=== PATIENT | female | born 1955 | race Caucasian/White ===

== ENCOUNTER 2019-10-24 13:28 | Inpatient (IN) | payer MEDICARE, MEDICAID ==
[2019-10-25] MEDS ORDERED: Magnesium Hydroxide (MOM) 30 mL UDC PO PRN (03:01)
[2019-10-25] MEDS ORDERED: Maalox 30 mL Cup PO PRN (03:01)
[2019-10-25] MEDS: Multivitamin Tab PO SCH ×2 (09:27→09:28)
--- NOTE | 2019-10-25 14:50 | History and Physical ---
History of Present Illness - HPI Chief Complaint: 64 y/o female patient was brought into ER for evaluation due to Increased confusion, Hallucinations, Aggressive behavior and Acting out. HPI: 64 y/o female patient was admitted to [facility] for evaluation due to Increased confusion, Hallucinations, Aggressive behavior and Acting out. Patient has history of . Patient had an ER assessment and a complete workup was done. Patient will have a Psych evaluation. Patient was diagnosed with Acute Psychosis. I will follow, treat and monitor patient. Patient will continue current treatment plan as ordered. Vital Signs: Last Vital Signs Temp 98.2 F 10/25/19 06:58 Pulse 74 10/25/19 06:58 Resp 20 10/25/19 06:58 BP 140/82 10/25/19 06:58 Pulse Ox 98 10/25/19 06:58 Past Medical History Cardiovascular: Report: No Pertinent Hx Pulmonary: Report: No Pertinent Hx ELECTRICAL MACHINIST: Report: No Pertinent Hx GI: Report: No Pertinent Hx Psych: Report: Psychosis Musculoskeletal: Report: No Pertinent Hx Rheumatologic: Report: No pertinent Hx Infectious Disease: Report: No Pertinent Hx Renal/: Report: No Pertinent Hx Endocrine: Report: No Pertinent Hx Dermatology: Report: No Pertinent Hx - Past Surgical History Past Surgical History: No pertinent Hx Family Medical History - Family Member Mother History Unknown: Yes Social History Smoke: No Alcohol: None Drugs: None Lives: With Family Domestic Violence: Negative Health Maintenance Health Maintenance: Other (Please see chart.) - Medications Home Medications: Home Medication Medication Instructions Recorded Type Atenolol 50 mg PO DAILY 10/25/19 History Divalproex ER [Depakote ER] 500 mg PO DAILY 10/25/19 History Quetiapine Fumarate [Seroquel] 200 mg PO HS 10/25/19 History Simvastatin [Zocor] 40 mg PO HS 10/25/19 History metFORMIN [Glucophage] 1,000 mg PO BID 10/25/19 History Other Medications: Please see medication reconciliation sheet. - Allergies Allergies/Adverse Reactions: Allergies Allergy/AdvReac Type Severity Reaction Status Date / Time Penicillins Allergy Verified 10/25/19 02:49 Review of Systems - Review of Systems Review of Systems: 64 y/o female patient was seen and examined, needs close monitoring due to Aggressive behavior, Increased confusion, Hallucinations and Striking out. Constitutional: Report: No Significant Eyes: Report: No Significant ENT: Report: No Significant Respiratory: Report: No Significant Cardiovascular: Report: No Significant Gastrointestinal: Report: No Significant Genitourinary: Report: No Significant Musculoskeletal: Report: No Significant Skin: Report: No Significant Neurological: Report: Confusion Physical Exam - Physical Exam HEENT: Report: Ears Nose Throat within normal limits Neck: Report: Within normal limits Cardiovascular Systems: Report: +s1/s2 noted Respiratory: Report: Breath Sounds are within normal limits Abdomen: Report: Non-tender to palpation Back: Report: Inspection of back is within normal limits. Extremities: Report: Non-tender to palpation. Skin: Report: Color of skin is within normal limits Neuro/Psych: Report: Disoriented to name time or place, Other (Increased Confusion and Aggression.) - Lab Results All Lab Results last 24 hours: Please see labs. - Assessment Assessment: Acute Psychosis. History of . - Plan Plan: Psych management as per Psych. Continue present meds as directed. Monitor vitals and labs. Supportive care. Monitor diet and nutritional support. Continue current treatment plan as ordered.
--- NOTE | 2019-10-25 20:40 | Psychiatric Evaluation ---
DATE OF SERVICE: 10/25/2019 HISTORY OF PRESENT ILLNESS: A 64-year-old female coming from [facility] due to increasing confusion, aggressive behaviors, hallucinations, coming from home under the service of Dr. Holcomb and Dr. Whitfield. History of hypertension, diabetes, arthritis, dementia, apparent bipolar. Noted to be confused, forgetful. The patient noting this is her first time in the psychiatric hospital going to other patients' rooms, using other patient's bathroom, trying to escape out of the unit. Staff monitoring her for AWOL risk. PAST PSYCHIATRIC HISTORY: As noted, noted dementia, possible bipolar. FAMILY HISTORY: Noncontributory. SOCIAL HISTORY: The patient coming from home. It is unclear what her level of family support is. MEDICATIONS: Noted. MENTAL STATUS EXAMINATION: Stated age. Fair eye contact, some confusion noted. No overt SI or HI. No overt psychotic symptoms, but disoriented, poor impulse control. PROVISIONAL DIAGNOSES: Dementia per history, bipolar per history. MEDICAL: Please see full H and P. ESTIMATED LENGTH OF STAY: 7-10 days. ASSESSMENT: The patient requiring hospitalization, agitated, more confused, could not be cared for at a lower level. TREATMENT PLAN: Includes group as well as milieu therapy, adjustment of medications. CONDITIONS FOR DISCHARGE: Improved mood, improved affect, better control of any agitation. JOB# [id number]
[2019-10-26] MEDS: Multivitamin Tab PO SCH (08:46)
[2019-10-26 17:03] VITALS: BP 98/41
--- NOTE | 2019-10-27 00:05 | Progress Notes ---
DATE: 10/26/2019 SUBJECTIVE: The patient is currently in the hospital, slept about 7 hours, confused, disoriented, wandering in the unit, really has no idea where she is or why she is here, states she is here "because of the program", needing a lot of redirection, sometimes trying to get out of the unit, restless, attempting to AWOL, disorganized. The patient needs to go. ASSESSMENT: The patient is very confused on exam, poor historian. The patient's son is involved. PLAN: We will continue to monitor concerns about poor impulse control. Medications were noted. Consider dosing of Aricept and Namenda. JOB# [id number]
[2019-10-27] MEDS: Multivitamin Tab PO SCH (09:30)
--- NOTE | 2019-10-27 14:38 | Internal Medicine Prog Note ---
Internal Medicine Subjective - Subjective Service Date: 10/27/19 Patient seen and examined:: with staff Patient is:: awake Per staff patient has:: tolerating meds Internal Medicine Objective - Physical Exam Vitals and I&O: Vital Signs Temp 97.8 F 10/27/19 06:39 Pulse 87 10/27/19 06:39 Resp 20 10/27/19 06:39 BP 147/76 10/27/19 06:39 Pulse Ox 95 10/27/19 06:39 Intake & Output 10/26/19 10/27/19 10/27/19 18:59 06:59 18:59 Intake Total 1200 240 Balance 1200 240 Intake: Oral 1200 240 Other: # Voids 3 2 # Bowel Movements 0 0 Active Medications: Current Medications Acetaminophen (Tylenol) 650 mg PO Q4HR PRN PRN Reason: Mild Pain (Scale 1-3) Stop: 12/24/19 03:00 Acetaminophen (Tylenol) 650 mg PO Q4H PRN PRN Reason: TEMP ABOVE 100 Stop: 12/24/19 10:19 Al Hydrox/Mg Hydrox/Simethicone (Maalox) 30 ml PO Q4HR PRN PRN Reason: GI DISTRESS Stop: 12/24/19 03:00 Atenolol (Tenormin) 25 mg PO DAILY [facility] Stop: 12/27/19 08:59 Lorazepam (Ativan) 0.5 mg PO Q4HR PRN; Protocol PRN Reason: Anxiety Stop: 11/24/19 03:00 Last Admin: 10/27/19 00:20 Dose: 0.5 mg Magnesium Hydroxide (Milk Of Magnesia) 30 ml PO HS PRN PRN Reason: Constipation Memantine (Namenda) 5 mg PO DAILY [facility] Stop: 12/26/19 08:59 Last Admin: 10/27/19 09:29 Dose: 5 mg Metformin HCl (Glucophage) 1,000 mg PO DAILY [facility] Stop: 12/27/19 08:59 Multivitamins/Vitamin C (Theragran) 1 tab PO DAILY [facility] Stop: 12/24/19 08:59 Last Admin: 10/27/19 09:30 Dose: 1 tab Nitrofurantoin Macrocrystals (Macrobid) 100 mg PO BIDWM [facility]; Protocol Stop: 12/26/19 17:59 Zolpidem Tartrate (Ambien) 5 mg PO HS PRN PRN Reason: Insomnia Stop: 12/24/19 03:00 Last Admin: 10/26/19 20:26 Dose: 5 mg General: alert HEENT: NC/AT, PERRLA Neck: Supple Cardiovascular: RRR Abdomen: soft, non-tender, non-distended Neurological: alert Internal Medicine Assmt/Plan - Assessment Assessment: Acute Psychosis. - Plan Plan: Psych management as per Psych. Continue present meds as directed. Monitor vitals and labs. Supportive care. Monitor diet and nutritional support. Continue current treatment plan as ordered.
--- NOTE | 2019-10-27 21:03 | Progress Notes ---
DATE: 10/27/2019 SUBJECTIVE: The patient in the hospital, trying to leave the unit, knocking on the doors, pushing the doors open, believing that she is going home, "I need to leave now" needing a lot of redirection, prompting, very disorganized, very confused, impulsive, unpredictable, sometimes getting upset and agitated with staff. We will continue to monitor. The patient is going to the bathroom, spending long periods of time in the bathroom. She is playing with toilet paper. MEDICATIONS: Reviewed. PLAN: We will continue to monitor. Continue Namenda. JOB# [id number]
[2019-10-28] MEDS: Multivitamin Tab PO SCH (08:38)
--- NOTE | 2019-10-28 10:49 | Progress Notes ---
DATE: 10/28/2019 SUBJECTIVE: The patient was seen in the dining area. The patient appears to be guarded, easily gets frustrated, very disorganized, episodes of behavioral outbursts. Otherwise, the patient appears to be in no acute distress. OBJECTIVE: VITAL SIGNS: Temperature 96.8, heart rate 98, blood pressure 158/97, respirations 20, 97% on room air. HEENT: Atraumatic and normocephalic. Eyes: Bilateral conjunctivae are clear. Bilateral pupils are equally round and reactive. NECK: Supple. No JVD. CARDIOVASCULAR: S1 and S2, without murmur. PULMONARY: Clear to auscultation. GASTROINTESTINAL: Soft and nontender without guarding. Positive bowel sounds. MUSCULOSKELETAL: No clubbing. No cyanosis noted. ASSESSMENT: 1. Dementia. 2. Agitation. 3. Hypertension. 4. Diabetes. PLAN: We will continue to keep the patient to inpatient Psychiatric Unit. We will follow up with a psychiatrist to monitor the patient's condition and behavior. Treatment plans were discussed with the patient's nurse. Treatment plans were discussed with Dr. Whitfield. JOB# [id number]
--- NOTE | 2019-10-29 00:18 | Progress Notes ---
DATE: 10/28/[address] Velasco. SUBJECTIVE: The patient was seen and evaluated. IDENTIFYING DATA: This is a 64-year-old female, brought in here from [facility] due to increased confusion and aggressive behavior, hallucinations, coming from home. Medication reconciliation reviewed, which includes Tylenol as needed, Namenda, metformin. Today on [id number] evaluation, the patient observed to have mild latency, delayed response and at times selectively mute, disengaged in the interview and not participating at times. Therefore, extremely poor historian. EXAMINATION: Poor historian, disengaged, distraught. ASSESSMENT AND PLAN: History of dementia. We will continue with the recent additional medication by the primary doctor, which includes Namenda. Obtain more collateral baseline information, especially with her history of bipolar . JOB# [id number]
[2019-10-29] MEDS: Multivitamin Tab PO SCH (09:05)
--- NOTE | 2019-10-29 15:02 | Internal Medicine Prog Note ---
Internal Medicine Subjective - Subjective Service Date: 10/29/19 Patient seen and examined:: with staff Patient is:: awake, agitated, confused Patient Complaints of:: other (delusional) Per staff patient has:: tolerating meds Internal Medicine Objective - Physical Exam Vitals and I&O: Vital Signs Temp 98.3 F 10/29/19 06:26 Pulse 88 10/29/19 09:06 Resp 20 10/29/19 06:26 BP 138/83 10/29/19 09:06 Pulse Ox 100 10/29/19 06:26 Intake & Output 10/28/19 10/29/19 10/29/19 18:59 06:59 18:59 Intake Total 850 240 Balance 850 240 Intake: Oral 850 240 Other: # Voids 2 # Bowel Movements 1 Active Medications: Current Medications Acetaminophen (Tylenol) 650 mg PO Q4HR PRN PRN Reason: Mild Pain (Scale 1-3) Stop: 12/24/19 03:00 Acetaminophen (Tylenol) 650 mg PO Q4H PRN PRN Reason: TEMP ABOVE 100 Stop: 12/24/19 10:19 Al Hydrox/Mg Hydrox/Simethicone (Maalox) 30 ml PO Q4HR PRN PRN Reason: GI DISTRESS Stop: 12/24/19 03:00 Atenolol (Tenormin) 25 mg PO BID [facility] Stop: 12/26/19 16:59 Last Admin: 10/29/19 09:06 Dose: 25 mg Lorazepam (Ativan) 0.5 mg PO Q4HR PRN; Protocol PRN Reason: Anxiety Stop: 11/24/19 03:00 Last Admin: 10/29/19 13:10 Dose: 0.5 mg Magnesium Hydroxide (Milk Of Magnesia) 30 ml PO HS PRN PRN Reason: Constipation Memantine (Namenda) 5 mg PO DAILY [facility] Stop: 12/26/19 08:59 Last Admin: 10/29/19 09:05 Dose: 5 mg Metformin HCl (Glucophage) 1,000 mg PO DAILY [facility] Stop: 12/27/19 08:59 Last Admin: 10/29/19 08:04 Dose: 1,000 mg Multivitamins/Vitamin C (Theragran) 1 tab PO DAILY [facility] Stop: 12/24/19 08:59 Last Admin: 10/29/19 09:05 Dose: 1 tab Nitrofurantoin Macrocrystals (Macrobid) 100 mg PO BIDWM [facility]; Protocol Stop: 12/26/19 17:59 Last Admin: 10/29/19 08:00 Dose: 100 mg Zolpidem Tartrate (Ambien) 5 mg PO HS PRN PRN Reason: Insomnia Stop: 12/24/19 03:00 Last Admin: 10/28/19 20:42 Dose: 5 mg Physical Exam: Needs close monitoring, continue to be delusional, hallucinating, has aggressive behavior. General: alert HEENT: NC/AT, PERRLA Neck: Supple Cardiovascular: RRR Abdomen: soft, non-tender, non-distended Neurological: alert Internal Medicine Assmt/Plan - Assessment Assessment: Acute Psychosis. - Plan Plan: Psych management as per Psych. Continue present meds as directed. Monitor vitals and labs. Supportive care. Monitor diet and nutritional support. Continue current treatment plan as ordered. Nutritional Asmnt/Malnutr-PDOC - Dietary Evaluation Malnutrition Findings (Please click <Entered> for more info): See orders.
--- NOTE | 2019-10-29 16:40 | Progress Notes ---
DATE: 10/29/2019 Today on [id number] evaluation, the patient is observed to be pacing throughout the hallway. She is confused. She does not know where her room is. She is guided back to her room and she starts being tearful. Reports that she does not know where she is, angry. MENTAL STATUS EXAMINATION: Poor historian and poor memory, disengaged. ASSESSMENT PLAN: Dementia with behavior disturbances. We will continue with the recent increase of the Namenda. We will obtain more collateral baseline information as she finds herself disorganized, but also distraught by the severe memory impairment. JOB# [id number]
[2019-10-30] MEDS: Multivitamin Tab PO SCH (09:12)
--- NOTE | 2019-10-30 18:57 | Internal Medicine Prog Note ---
Internal Medicine Subjective - Subjective Service Date: 10/30/19 Patient seen and examined:: with staff Patient is:: awake, agitated, confused Patient Complaints of:: other (delusional) Per staff patient has:: tolerating meds Internal Medicine Objective - Physical Exam Vitals and I&O: Vital Signs Temp 98.2 F 10/30/19 15:27 Pulse 97 10/30/19 16:45 Resp 18 10/30/19 15:27 BP 157/80 10/30/19 16:45 Pulse Ox 96 10/30/19 15:27 Intake & Output 10/29/19 10/30/19 10/30/19 18:59 06:59 18:59 Intake Total 5732 961 2771 Output Total 3 Balance 9288 340 1107 Intake: Oral 280 522 4781 Other 240 Output: Stool 3 Other: # Voids 4 4 4 # Bowel Movements 3 0 1 Active Medications: Current Medications Acetaminophen (Tylenol) 650 mg PO Q4HR PRN PRN Reason: Mild Pain (Scale 1-3) Stop: 12/24/19 03:00 Acetaminophen (Tylenol) 650 mg PO Q4H PRN PRN Reason: TEMP ABOVE 100 Stop: 12/24/19 10:19 Al Hydrox/Mg Hydrox/Simethicone (Maalox) 30 ml PO Q4HR PRN PRN Reason: GI DISTRESS Stop: 12/24/19 03:00 Atenolol (Tenormin) 25 mg PO BID [facility] Stop: 12/26/19 16:59 Last Admin: 10/30/19 16:45 Dose: 25 mg Lorazepam (Ativan) 0.5 mg PO Q4HR PRN; Protocol PRN Reason: Anxiety Stop: 11/24/19 03:00 Last Admin: 10/30/19 16:45 Dose: 0.5 mg Magnesium Hydroxide (Milk Of Magnesia) 30 ml PO HS PRN PRN Reason: Constipation Memantine (Namenda) 5 mg PO DAILY [facility] Stop: 12/26/19 08:59 Last Admin: 10/30/19 09:12 Dose: 5 mg Metformin HCl (Glucophage) 1,000 mg PO DAILY [facility] Stop: 12/27/19 08:59 Last Admin: 10/30/19 09:11 Dose: 1,000 mg Multivitamins/Vitamin C (Theragran) 1 tab PO DAILY [facility] Stop: 12/24/19 08:59 Last Admin: 10/30/19 09:12 Dose: 1 tab Nitrofurantoin Macrocrystals (Macrobid) 100 mg PO BIDWM [facility]; Protocol Stop: 12/26/19 17:59 Last Admin: 10/30/19 17:15 Dose: 100 mg Zolpidem Tartrate (Ambien) 5 mg PO HS PRN PRN Reason: Insomnia Stop: 12/24/19 03:00 Last Admin: 10/28/19 20:42 Dose: 5 mg Physical Exam: Continues to need close monitoring, continue to hallucinate and have agitated and hostile behavior. General: alert HEENT: NC/AT, PERRLA Neck: Supple Cardiovascular: RRR Abdomen: soft, non-tender, non-distended Extremities: clear Neurological: alert Internal Medicine Assmt/Plan - Assessment Assessment: Acute Psychosis. - Plan Plan: Psych management as per Psych. Continue present meds as directed. Monitor vitals and labs. Supportive care. Monitor diet and nutritional support. Continue current treatment plan as ordered. Nutritional Asmnt/Malnutr-PDOC - Dietary Evaluation Malnutrition Findings (Please click <Entered> for more info): Nutritional Asmnt/Malnutrition Start: 10/30/19 12: 12 Text: Status: Complete Freq: Protocol: Document 10/30/19 12:18 SHAD (Rec: 10/30/19 12:20 SHAD [id number]) Nutritional Asmnt/Malnutrition Patient General Information Nutritional Screening Moderate Risk Diagnosis Psychosis Pertinent Medical Hx/Surgical Hx No pertinent Hx per H & P report. Subjective Information Pt is a 64-year-old female admitted on 10/25 d/t increased confusion, hallucinations, and aggressive behavior. Pt is eating an estimated 75% of meals x 3 days Per Meal/ Nutrition Activity Record. Dietary is currently providing an estimated 1800 kcals and 70 gm Pro, per Pt PO intake this is providing an estimated 1350 kcals and 53 gm Pro to meet 80% kcal and 80% Pro needs- adequate. Anthropometrics HT: 54 WT: 147 LB (66.82 kg) BMI: 25.23 (Normal) GI/ Skin Integrity GI: Soft, Non-tender BM: 10/29 x1 I/O: 1480/3 (+1477) Skin: WNL, Intact Ravi: 21 Diet Order: CCHO 45gm, YEYO Estimated Energy Needs: ( Geriatric, CBW) 8510-0649 kcals (25-30 kcals/ kg) 66-80g Pro (1.0-1.2 g/kg) 3399-7135 ml (25-30 ml/kg) Current Diet Order/ Nutrition Support [facility] 45gm, YEYO Pertinent Medications Maalox (PRN), MOM (PRN), Glucophage, Theragran Pertinent Labs 10/24: Glucose 108, Ca 8.0, Alk Phos 39, Alb 3.1, Hgb/Hct 10. 8/32.9, GFR 98 Nutritional Hx/Data Height 1.63 m Height (Calculated Centimeters) 162.6 Current Weight (lbs) 66.678 kg Weight (Calculated Kilograms) 66.7 Weight (Calculated Grams) 34738.1 [place] Body Weight 120 LB (54.55 kg) % [place] Body Weight 82 Body Mass Index (BMI) 25.2 Weight Status Approriate GI Symptoms Last BM 10/29 x1 Skin Integrity/Comment: Skin: WNL, Intact Ravi: 21 Estimated Nutritional Goals BEE in Kcals: Using Current wt Calories/Kcals/Kg 25-30 Kcals Calculated 7063-2830 Protein: Using Current wt Protein g/k.0-1.2 Protein Calculated 66-80 Fluid: ml 1128-4758 ml (25-30 ml/kg) Nutritional Problem No current Nutrition Prob Problem No nutrition diagnosis at this time. Etiology N/A Signs/Symptoms: N/A Malnutrition Related to Morbid Obesity Malnutrition related to morbid obesity No Intervention/Recommendation Comments 1. Continue [facility] 45gm, YEYO diet as tolerated. 2. Continue antihyperglycemic medications for glucose control per MD order. Expected Outcomes/Goals Expected Outcomes/Goals 1. PO intake to continue to meet> 75% of estimated nutritional needs. 2. Monitor PO intake, wt, nutrition related labs, and skin integrity. 3. F/U as low risk in 7-10 days, 11/06-11/09
--- NOTE | 2019-10-31 00:31 | Progress Notes ---
DATE: 10/30/2019 SUBJECTIVE: The patient is very confused, disoriented, still trying to escape the unit stating that she is going to go home, "I'm gonna go home." Concerns for her ability to function at a lower level given how confused she is, disoriented she is, especially for appetite, somewhat calmer versus last week taking her medications. MEDICATIONS: Reviewed. PLAN: We will continue to monitor, coordinate care with social group worker regarding safe discharge plan. JOB# [id number]
[2019-10-31] MEDS: Multivitamin Tab PO SCH (09:18)
--- NOTE | 2019-10-31 17:28 | Internal Medicine Prog Note ---
Internal Medicine Subjective - Subjective Service Date: 10/31/19 Patient is:: awake, agitated, confused Patient Complaints of:: other (delusional) Per staff patient has:: tolerating meds Internal Medicine Objective - Physical Exam Vitals and I&O: Vital Signs Temp 99.4 F 10/31/19 14:00 Pulse 85 10/31/19 17:16 Resp 20 10/31/19 14:00 BP 157/86 10/31/19 17:16 Pulse Ox 97 10/31/19 14:00 Intake & Output 10/30/19 10/31/19 10/31/19 18:59 06:59 18:59 Intake Total 1000 240 Balance 1000 240 Intake: Oral 1000 240 Other: # Voids 4 2 # Bowel Movements 1 Active Medications: Current Medications Acetaminophen (Tylenol) 650 mg PO Q4HR PRN PRN Reason: Mild Pain (Scale 1-3) Stop: 12/24/19 03:00 Acetaminophen (Tylenol) 650 mg PO Q4H PRN PRN Reason: TEMP ABOVE 100 Stop: 12/24/19 10:19 Al Hydrox/Mg Hydrox/Simethicone (Maalox) 30 ml PO Q4HR PRN PRN Reason: GI DISTRESS Stop: 12/24/19 03:00 Atenolol (Tenormin) 25 mg PO BID [facility] Stop: 12/26/19 16:59 Last Admin: 10/31/19 17:16 Dose: 25 mg Donepezil HCl (Aricept) 5 mg PO HS [facility] Stop: 12/30/19 20:59 Lorazepam (Ativan) 0.5 mg PO Q4HR PRN; Protocol PRN Reason: Anxiety Stop: 11/24/19 03:00 Last Admin: 10/30/19 16:45 Dose: 0.5 mg Magnesium Hydroxide (Milk Of Magnesia) 30 ml PO HS PRN PRN Reason: Constipation Memantine (Namenda) 5 mg PO DAILY [facility] Stop: 12/26/19 08:59 Last Admin: 10/31/19 09:18 Dose: 5 mg Metformin HCl (Glucophage) 1,000 mg PO DAILY [facility] Stop: 12/27/19 08:59 Last Admin: 10/31/19 09:18 Dose: 1,000 mg Multivitamins/Vitamin C (Theragran) 1 tab PO DAILY TR Stop: 12/24/19 08:59 Last Admin: 10/31/19 09:18 Dose: 1 tab Nitrofurantoin Macrocrystals (Macrobid) 100 mg PO BIDWM TR; Protocol Stop: 12/26/19 17:59 Last Admin: 10/31/19 17:15 Dose: 100 mg Zolpidem Tartrate (Ambien) 5 mg PO HS PRN PRN Reason: Insomnia Stop: 12/24/19 03:00 Last Admin: 10/28/19 20:42 Dose: 5 mg General: alert HEENT: NC/AT, PERRLA Neck: Supple Cardiovascular: RRR Abdomen: soft, non-tender, non-distended Extremities: clear Neurological: alert Internal Medicine Assmt/Plan - Assessment Assessment: Acute Psychosis. - Plan Plan: Psych management as per Psych. Continue present meds as directed. Monitor vitals and labs. Supportive care. Monitor diet and nutritional support. Continue current treatment plan as ordered. Nutritional Asmnt/Malnutr-PDOC - Dietary Evaluation Malnutrition Findings (Please click <Entered> for more info): Nutritional Asmnt/Malnutrition Start: 10/30/19 12: 12 Text: Status: Complete Freq: Protocol: Document 10/30/19 12:18 SHAD (Rec: 10/30/19 12:20 SHAD [email or web address]) Nutritional Asmnt/Malnutrition Patient General Information Nutritional Screening Moderate Risk Diagnosis Psychosis Pertinent Medical Hx/Surgical Hx No pertinent Hx per H & P report. Subjective Information Pt is a 64-year-old female admitted on 10/25 d/t increased confusion, hallucinations, and aggressive behavior. Pt is eating an estimated 75% of meals x 3 days Per Meal/ Nutrition Activity Record. Dietary is currently providing an estimated 1800 kcals and 70 gm Pro, per Pt PO intake this is providing an estimated 1350 kcals and 53 gm Pro to meet 80% kcal and 80% Pro needs- adequate. Anthropometrics HT: 54 WT: 147 LB (66.82 kg) BMI: 25.23 (Normal) GI/ Skin Integrity GI: Soft, Non-tender BM: / x1 I/O: 1480/3 (+1477) Skin: WNL, Intact Ravi: 21 Diet Order: [facility] 45gm, YEYO Estimated Energy Needs: ( Geriatric, CBW) 9475-3088 kcals (25-30 kcals/ kg) 66-80g Pro (1.0-1.2 g/kg) 9263-6886 ml (25-30 ml/kg) Current Diet Order/ Nutrition Support [facility] 45gm, YEYO Pertinent Medications Maalox (PRN), MOM (PRN), Glucophage, Theragran Pertinent Labs 10/24: Glucose 108, Ca 8.0, Alk Phos 39, Alb 3.1, Hgb/Hct 10. 8/32.9, GFR 98 Nutritional Hx/Data Height 5 ft 4 in Height (Calculated Centimeters) 162.6 Current Weight (lbs) 147 lb Weight (Calculated Kilograms) 66.7 Weight (Calculated Grams) 86940.1 [place] Body Weight 120 LB (54.55 kg) % [place] Body Weight 82 Body Mass Index (BMI) 25.2 Weight Status Approriate GI Symptoms Last BM 10/29 x1 Skin Integrity/Comment: Skin: WNL, Intact Ravi: 21 Estimated Nutritional Goals BEE in Kcals: Using Current wt Calories/Kcals/Kg 25-30 Kcals Calculated 1513-1596 Protein: Using Current wt Protein g/k.0-1.2 Protein Calculated 66-80 Fluid: ml 7605-2395 ml (25-30 ml/kg) Nutritional Problem No current Nutrition Prob Problem No nutrition diagnosis at this time. Etiology N/A Signs/Symptoms: N/A Malnutrition Related to Morbid Obesity Malnutrition related to morbid obesity No Intervention/Recommendation Comments 1. Continue [facility] 45gm, YEYO diet as tolerated. 2. Continue antihyperglycemic medications for glucose control per MD order. Expected Outcomes/Goals Expected Outcomes/Goals 1. PO intake to continue to meet> 75% of estimated nutritional needs. 2. Monitor PO intake, wt, nutrition related labs, and skin integrity. 3. F/U as low risk in 7-10 days, 11/06-11/09
--- NOTE | 2019-10-31 22:57 | Progress Notes ---
DATE: SUBJECTIVE: The patient seen, chart reviewed, discussed with staff. The patient continues to believe that she is going home, still trying to leave, very confused, disoriented, unruly at times, still requiring a higher level of prompting, redirection, fair sleep, fair appetite, resting comfortably right now. It seems she has dementia with behavioral disturbances, remains impulsive, unpredictable. PLAN: We will continue to monitor, continue to titrate medications. I did review her vitals, we will add dosing of Aricept. JOB# [id number]
--- NOTE | 2019-11-01 06:59 | Progress Notes ---
DATE: Dr. Olson covering for Dr. Holcomb. Chart reviewed and the patient interviewed. Also discussed the patient's condition with the staff and reviewed records and labs. The patient is still confused and forgetful. The patient also still needs lots of redirections. The patient also had difficulty following any of staff directions. The patient also is still suspicious and paranoid and easily agitated. Otherwise, the patient continued to comply with taking medications with no side effects of medications. ASSESSMENT: The patient is still confused and forgetful. TREATMENT PLAN: Continue to monitor behavior and condition closely. Also, we will increase Namenda to 5 mg twice a day. It seems that the patient's agitation and irritability is getting better since she is taking Macrobid to help with her UTI and it seems that her UTI is getting better and that helps the patient's confusion and agitation. JOB# [id number]
[2019-11-01] MEDS: Multivitamin Tab PO SCH (08:47)
--- NOTE | 2019-11-01 09:12 | Internal Medicine Prog Note ---
Internal Medicine Subjective - Subjective Service Date: 11/01/19 Patient seen and examined:: with staff Patient is:: awake, agitated, confused Patient Complaints of:: other (delusional) Per staff patient has:: tolerating meds Internal Medicine Objective - Physical Exam Vitals and I&O: Vital Signs Temp 98.2 F 11/01/19 06:37 Pulse 73 11/01/19 08:46 Resp 20 11/01/19 06:37 BP 126/72 11/01/19 08:46 Pulse Ox 99 11/01/19 06:37 Intake & Output 10/31/19 11/01/19 11/01/19 18:59 06:59 18:59 Intake Total 900 240 Balance 900 240 Intake: Oral 900 240 Other: # Voids 3 2 # Bowel Movements 2 0 Active Medications: Current Medications Acetaminophen (Tylenol) 650 mg PO Q4HR PRN PRN Reason: Mild Pain (Scale 1-3) Stop: 12/24/19 03:00 Acetaminophen (Tylenol) 650 mg PO Q4H PRN PRN Reason: TEMP ABOVE 100 Stop: 12/24/19 10:19 Al Hydrox/Mg Hydrox/Simethicone (Maalox) 30 ml PO Q4HR PRN PRN Reason: GI DISTRESS Stop: 12/24/19 03:00 Atenolol (Tenormin) 25 mg PO BID [facility] Stop: 12/26/19 16:59 Last Admin: 11/01/19 08:46 Dose: 25 mg Donepezil HCl (Aricept) 5 mg PO HS [facility] Stop: 12/30/19 20:59 Last Admin: 10/31/19 20:42 Dose: 5 mg Lorazepam (Ativan) 0.5 mg PO Q4HR PRN; Protocol PRN Reason: Anxiety Stop: 11/24/19 03:00 Last Admin: 10/30/19 16:45 Dose: 0.5 mg Magnesium Hydroxide (Milk Of Magnesia) 30 ml PO HS PRN PRN Reason: Constipation Memantine (Namenda) 5 mg PO BID [facility] Stop: 12/31/19 08:59 Last Admin: 11/01/19 08:47 Dose: 5 mg Metformin HCl (Glucophage) 1,000 mg PO DAILY [facility] Stop: 12/27/19 08:59 Last Admin: 11/01/19 08:47 Dose: 1,000 mg Multivitamins/Vitamin C (Theragran) 1 tab PO DAILY TR Stop: 12/24/19 08:59 Last Admin: 11/01/19 08:47 Dose: 1 tab Nitrofurantoin Macrocrystals (Macrobid) 100 mg PO BIDWM TR; Protocol Stop: 12/26/19 17:59 Last Admin: 11/01/19 07:53 Dose: 100 mg Zolpidem Tartrate (Ambien) 5 mg PO HS PRN PRN Reason: Insomnia Stop: 12/24/19 03:00 Last Admin: 10/28/19 20:42 Dose: 5 mg Physical Exam: Continues to need close monitoring, remains very confused and paranoid. General: alert HEENT: NC/AT, PERRLA Neck: Supple Cardiovascular: RRR Abdomen: soft, non-tender, non-distended Extremities: clear Neurological: alert Internal Medicine Assmt/Plan - Assessment Assessment: Acute Psychosis. - Plan Plan: Psych management as per Psych. Continue present meds as directed. Monitor vitals and labs. Supportive care. Monitor diet and nutritional support. Continue current treatment plan as ordered. Nutritional Asmnt/Malnutr-PDOC - Dietary Evaluation Malnutrition Findings (Please click <Entered> for more info): Nutritional Asmnt/Malnutrition Start: 10/30/19 12: 12 Text: Status: Complete Freq: Protocol: Document 10/30/19 12:18 SHAD (Rec: 10/30/19 12:20 SHAD [email or web address]) Nutritional Asmnt/Malnutrition Patient General Information Nutritional Screening Moderate Risk Diagnosis Psychosis Pertinent Medical Hx/Surgical Hx No pertinent Hx per H & P report. Subjective Information Pt is a 64-year-old female admitted on 10/25 d/t increased confusion, hallucinations, and aggressive behavior. Pt is eating an estimated 75% of meals x 3 days Per Meal/ Nutrition Activity Record. Dietary is currently providing an estimated 1800 kcals and 70 gm Pro, per Pt PO intake this is providing an estimated 1350 kcals and 53 gm Pro to meet 80% kcal and 80% Pro needs- adequate. Anthropometrics HT: 54 WT: 147 LB (66.82 kg) BMI: 25.23 (Normal) GI/ Skin Integrity GI: Soft, Non-tender BM: 10/29 x1 I/O: 1480/3 (+1477) Skin: WNL, Intact Ravi: 21 [facility] YEY[facility] Estimated Energy Needs: ( Geriatric, CBW) 4990-0591 kcals (25-30 kcals/ kg) 66-80g Pro (1.0-1.2 g/kg) 8967-7223 ml (25-30 ml/kg) Current Diet Order/ Nutrition Support [facility], YEYO Pertinent Medications Maalox (PRN), MOM (PRN), Glucophage, Theragran Pertinent Labs 10/24: Glucose 108, Ca 8.0, Alk Phos 39, Alb 3.1, Hgb/Hct 10. 8/32.9, GFR 98 Nutritional Hx/Data Height 1.63 m Height (Calculated Centimeters) 162.6 Current Weight (lbs) 66.678 kg Weight (Calculated Kilograms) 66.7 Weight (Calculated Grams) 41185.1 [place] Body Weight 120 LB (54.55 kg) % [place] Body Weight 82 Body Mass Index (BMI) 25.2 Weight Status Approriate GI Symptoms Last BM 10/29 x1 Skin Integrity/Comment: Skin: WNL, Intact Ravi: 21 Estimated Nutritional Goals BEE in Kcals: Using Current wt Calories/Kcals/Kg 25-30 Kcals Calculated 4331-1481 Protein: Using Current wt Protein g/k.0-1.2 Protein Calculated 66-80 Fluid: ml 1024-0056 ml (25-30 ml/kg) Nutritional Problem No current Nutrition Prob Problem No nutrition diagnosis at this time. Etiology N/A Signs/Symptoms: N/A Malnutrition Related to Morbid Obesity Malnutrition related to morbid obesity No Intervention/Recommendation Comments 1. [facility], YEYO diet as tolerated. 2. Continue antihyperglycemic medications for glucose control per MD order. Expected Outcomes/Goals Expected Outcomes/Goals 1. PO intake to continue to meet> 75% of estimated nutritional needs. 2. Monitor PO intake, wt, nutrition related labs, and skin integrity. 3. F/U as low risk in 7-10 days, 11/06-11/09
[2019-11-02] MEDS: Multivitamin Tab PO SCH (08:30)
--- NOTE | 2019-11-02 09:46 | Internal Medicine Prog Note ---
Internal Medicine Subjective - Subjective Service Date: 11/02/19 Patient seen and examined:: with staff Patient is:: awake, agitated, confused Patient Complaints of:: other (delusional) Per staff patient has:: no adverse event, tolerating meds Internal Medicine Objective - Physical Exam Vitals and I&O: Vital Signs Temp 97.1 F 11/02/19 07:06 Pulse 72 11/02/19 08:29 Resp 18 11/02/19 07:06 BP 140/74 11/02/19 08:29 Pulse Ox 97 11/02/19 07:06 Intake & Output 11/01/19 11/02/19 11/02/19 18:59 06:59 18:59 Intake Total 900 120 120 Balance 900 120 120 Intake: Oral 900 120 120 Other: # Voids 3 2 2 # Bowel Movements 1 0 0 Stool Characteristics Formed Formed Brown Brown Active Medications: Current Medications Acetaminophen (Tylenol) 650 mg PO Q4HR PRN PRN Reason: Mild Pain (Scale 1-3) Stop: 12/24/19 03:00 Acetaminophen (Tylenol) 650 mg PO Q4H PRN PRN Reason: TEMP ABOVE 100 Stop: 12/24/19 10:19 Al Hydrox/Mg Hydrox/Simethicone (Maalox) 30 ml PO Q4HR PRN PRN Reason: GI DISTRESS Stop: 12/24/19 03:00 Atenolol (Tenormin) 25 mg PO BID [facility] Stop: 12/26/19 16:59 Last Admin: 11/02/19 08:29 Dose: 25 mg Donepezil HCl (Aricept) 5 mg PO HS [facility] Stop: 12/30/19 20:59 Last Admin: 11/01/19 21:13 Dose: 5 mg Lorazepam (Ativan) 0.5 mg PO Q4HR PRN; Protocol PRN Reason: Anxiety Stop: 11/24/19 03:00 Last Admin: 10/30/19 16:45 Dose: 0.5 mg Magnesium Hydroxide (Milk Of Magnesia) 30 ml PO HS PRN PRN Reason: Constipation Memantine (Namenda) 5 mg PO BID [facility] Stop: 12/31/19 08:59 Last Admin: 11/02/19 08:30 Dose: 5 mg Metformin HCl (Glucophage) 1,000 mg PO DAILY [facility] Stop: 12/27/19 08:59 Last Admin: 11/02/19 08:30 Dose: 1,000 mg Multivitamins/Vitamin C (Theragran) 1 tab PO DAILY [facility] Stop: 12/24/19 08:59 Last Admin: 11/02/19 08:30 Dose: 1 tab Nitrofurantoin Macrocrystals (Macrobid) 100 mg PO BIDWM TR; Protocol Stop: 12/26/19 17:59 Last Admin: 11/02/19 08:11 Dose: 100 mg Zolpidem Tartrate (Ambien) 5 mg PO HS PRN PRN Reason: Insomnia Stop: 12/24/19 03:00 Last Admin: 10/28/19 20:42 Dose: 5 mg Physical Exam: Patient is still very dis-oriented and irritable, in no acute distress. General: alert HEENT: NC/AT, PERRLA Neck: Supple Cardiovascular: RRR Abdomen: soft, non-tender, non-distended Extremities: clear Neurological: alert Internal Medicine Assmt/Plan - Assessment Assessment: Acute Psychosis. - Plan Plan: Psych management as per Psych. Continue present meds as directed. Monitor vitals and labs. Supportive care. Monitor diet and nutritional support. Continue current treatment plan as ordered. Nutritional Asmnt/Malnutr-PDOC - Dietary Evaluation Malnutrition Findings (Please click <Entered> for more info): Nutritional Asmnt/Malnutrition Start: 10/30/19 12: 12 Text: Status: Complete Freq: Protocol: Document 10/30/19 12:18 SHAD (Rec: 10/30/19 12:20 SHAD [email or web address]) Nutritional Asmnt/Malnutrition Patient General Information Nutritional Screening Moderate Risk Diagnosis Psychosis Pertinent Medical Hx/Surgical Hx No pertinent Hx per H & P report. Subjective Information Pt is a 64-year-old female admitted on 10/25 d/t increased confusion, hallucinations, and aggressive behavior. Pt is eating an estimated 75% of meals x 3 days Per Meal/ Nutrition Activity Record. Dietary is currently providing an estimated 1800 kcals and 70 gm Pro, per Pt PO intake this is providing an estimated 1350 kcals and 53 gm Pro to meet 80% kcal and 80% Pro needs- adequate. Anthropometrics HT: 54 WT: 147 LB (66.82 kg) BMI: 25.23 (Normal) GI/ Skin Integrity GI: Soft, Non-tender BM: 10/29 x1 I/O: 1480/3 (+1477) Skin: WNL, Intact Ravi: 21 [facility] Estimated Energy Needs: ( Geriatric, CBW) 7280-7937 kcals (25-30 kcals/ kg) 66-80g Pro (1.0-1.2 g/kg) 4123-8461 ml (25-30 ml/kg) Current Diet Order/ Nutrition Support [facility] 45gm, YEYO Pertinent Medications Maalox (PRN), MOM (PRN), Glucophage, Theragran Pertinent Labs 10/24: Glucose 108, Ca 8.0, Alk Phos 39, Alb 3.1, Hgb/Hct 10. 8/32.9, GFR 98 Nutritional Hx/Data Height 1.63 m Height (Calculated Centimeters) 162.6 Current Weight (lbs) 66.678 kg Weight (Calculated Kilograms) 66.7 Weight (Calculated Grams) 97648.1 [place] Body Weight 120 LB (54.55 kg) % [place] Body Weight 82 Body Mass Index (BMI) 25.2 Weight Status Approriate GI Symptoms Last BM 10/29 x1 Skin Integrity/Comment: Skin: WNL, Intact Ravi: 21 Estimated Nutritional Goals BEE in Kcals: Using Current wt Calories/Kcals/Kg 25-30 Kcals Calculated 3750-9152 Protein: Using Current wt Protein g/k.0-1.2 Protein Calculated 66-80 Fluid: ml 9353-5551 ml (25-30 ml/kg) Nutritional Problem No current Nutrition Prob Problem No nutrition diagnosis at this time. Etiology N/A Signs/Symptoms: N/A Malnutrition Related to Morbid Obesity Malnutrition related to morbid obesity No Intervention/Recommendation Comments 1. [facility], YEYO diet as tolerated. 2. Continue antihyperglycemic medications for glucose control per MD order. Expected Outcomes/Goals Expected Outcomes/Goals 1. PO intake to continue to meet> 75% of estimated nutritional needs. 2. Monitor PO intake, wt, nutrition related labs, and skin integrity. 3. F/U as low risk in 7-10 days, 11/06-11/09
[2019-11-03] MEDS: Multivitamin Tab PO SCH (08:18)
--- NOTE | 2019-11-03 19:02 | Internal Medicine Prog Note ---
Internal Medicine Subjective - Subjective Service Date: 11/03/19 Patient seen and examined:: with staff Patient is:: awake, agitated, confused Patient Complaints of:: other (delusional) Per staff patient has:: no adverse event, no episodes of fall, tolerating meds Internal Medicine Objective - Physical Exam Vitals and I&O: Vital Signs Temp 97.7 F 11/03/19 14:00 Pulse 69 11/03/19 17:09 Resp 18 11/03/19 14:00 BP 97/54 11/03/19 17:09 Pulse Ox 99 11/03/19 14:00 Intake & Output 11/02/19 11/03/19 11/03/19 18:59 06:59 18:59 Intake Total 0080 472 2481 Balance 2764 044 7736 Intake: Oral 0472 243 0505 Other: # Voids 3 2 # Bowel Movements 0 1 1 Stool Characteristics Formed Formed Brown Brown Active Medications: Current Medications Acetaminophen (Tylenol) 650 mg PO Q4HR PRN PRN Reason: Mild Pain (Scale 1-3) Stop: 12/24/19 03:00 Acetaminophen (Tylenol) 650 mg PO Q4H PRN PRN Reason: TEMP ABOVE 100 Stop: 12/24/19 10:19 Al Hydrox/Mg Hydrox/Simethicone (Maalox) 30 ml PO Q4HR PRN PRN Reason: GI DISTRESS Stop: 12/24/19 03:00 Atenolol (Tenormin) 25 mg PO BID [facility] Stop: 12/26/19 16:59 Last Admin: 11/03/19 17:09 Dose: Not Given Donepezil HCl (Aricept) 5 mg PO HS [facility] Stop: 12/30/19 20:59 Last Admin: 11/02/19 21:31 Dose: 5 mg Lorazepam (Ativan) 0.5 mg PO Q4HR PRN; Protocol PRN Reason: Anxiety Stop: 11/24/19 03:00 Last Admin: 10/30/19 16:45 Dose: 0.5 mg Magnesium Hydroxide (Milk Of Magnesia) 30 ml PO HS PRN PRN Reason: Constipation Memantine (Namenda) 5 mg PO BID [facility] Stop: 12/31/19 08:59 Last Admin: 11/03/19 17:09 Dose: 5 mg Metformin HCl (Glucophage) 1,000 mg PO DAILY [facility] Stop: 12/27/19 08:59 Last Admin: 11/03/19 08:18 Dose: 1,000 mg Multivitamins/Vitamin C (Theragran) 1 tab PO DAILY [facility] Stop: 12/24/19 08:59 Last Admin: 11/03/19 08:18 Dose: 1 tab Nitrofurantoin Macrocrystals (Macrobid) 100 mg PO BIDWM TR; Protocol Stop: 12/26/19 17:59 Last Admin: 11/03/19 17:16 Dose: 100 mg Zolpidem Tartrate (Ambien) 5 mg PO HS PRN PRN Reason: Insomnia Stop: 12/24/19 03:00 Last Admin: 10/28/19 20:42 Dose: 5 mg Physical Exam: Patient still needs close monitoring, easily frustrated, remains very confused, in no acute distress. General: alert HEENT: NC/AT, PERRLA Neck: Supple Lungs: CTAB Cardiovascular: RRR Abdomen: soft, non-tender, non-distended Extremities: clear Neurological: alert Internal Medicine Assmt/Plan - Assessment Assessment: Acute Psychosis. - Plan Plan: Psych management as per Psych. Continue present meds as directed. Monitor vitals and labs. Supportive care. Monitor diet and nutritional support. Continue current treatment plan as ordered. Nutritional Asmnt/Malnutr-PDOC - Dietary Evaluation Malnutrition Findings (Please click <Entered> for more info): Nutritional Asmnt/Malnutrition Start: 10/30/19 12: 12 Text: Status: Complete Freq: Protocol: Document 10/30/19 12:18 SHAD (Rec: 10/30/19 12:20 SHAD [email or web address]) Nutritional Asmnt/Malnutrition Patient General Information Nutritional Screening Moderate Risk Diagnosis Psychosis Pertinent Medical Hx/Surgical Hx No pertinent Hx per H & P report. Subjective Information Pt is a 64-year-old female admitted on 10/25 d/t increased confusion, hallucinations, and aggressive behavior. Pt is eating an estimated 75% of meals x 3 days Per Meal/ Nutrition Activity Record. Dietary is currently providing an estimated 1800 kcals and 70 gm Pro, per Pt PO intake this is providing an estimated 1350 kcals and 53 gm Pro to meet 80% kcal and 80% Pro needs- adequate. Anthropometrics HT: 54 WT: 147 LB (66.82 kg) BMI: 25.23 (Normal) GI/ Skin Integrity GI: Soft, Non-tender BM: 10/29 x1 I/O: 1480/3 (+1477) Skin: WNL, Intact Ravi: 21 Diet Order: [facility] 45, YEYO Estimated Energy Needs: ( Geriatric, CBW) 3519-9690 kcals (25-30 kcals/ kg) 66-80g Pro (1.0-1.2 g/kg) 4181-8913 ml (25-30 ml/kg) Current Diet Order/ Nutrition Support [facility] 45, YEYO Pertinent Medications Maalox (PRN), MOM (PRN), Glucophage, Theragran Pertinent Labs 10/24: Glucose 108, Ca 8.0, Alk Phos 39, Alb 3.1, Hgb/Hct 10. 8/32.9, GFR 98 Nutritional Hx/Data Height 1.63 m Height (Calculated Centimeters) 162.6 Current Weight (lbs) 66.678 kg Weight (Calculated Kilograms) 66.7 Weight (Calculated Grams) 81561.1 [place] Body Weight 120 LB (54.55 kg) % [place] Body Weight 82 Body Mass Index (BMI) 25.2 Weight Status Approriate GI Symptoms Last BM 10/29 x1 Skin Integrity/Comment: Skin: WNL, Intact Ravi: 21 Estimated Nutritional Goals BEE in Kcals: Using Current wt Calories/Kcals/Kg 25-30 Kcals Calculated 9579-5565 Protein: Using Current wt Protein g/k.0-1.2 Protein Calculated 66-80 Fluid: ml 5009-1765 ml (25-30 ml/kg) Nutritional Problem No current Nutrition Prob Problem No nutrition diagnosis at this time. Etiology N/A Signs/Symptoms: N/A Malnutrition Related to Morbid Obesity Malnutrition related to morbid obesity No Intervention/Recommendation Comments 1. Continue [facility] 45, YEYO diet as tolerated. 2. Continue antihyperglycemic medications for glucose control per MD order. Expected Outcomes/Goals Expected Outcomes/Goals 1. PO intake to continue to meet> 75% of estimated nutritional needs. 2. Monitor PO intake, wt, nutrition related labs, and skin integrity. 3. F/U as low risk in 7-10 days, 11/06-11/09
[2019-11-04] MEDS: Multivitamin Tab PO SCH (09:00)
--- NOTE | 2019-11-04 22:35 | Progress Notes ---
DATE: 11/04/2019 SUBJECTIVE: A 64-year-old female coming in from [facility], increased confusion, aggressive behaviors, hallucinations and dementia. The patient is very confused, disoriented. No longer as agitated, still stating she wants to go home, still wandering, restless, but no aggressive behaviors, seems to be a lot calmer. The patient was apparently residing at home with the son. Family would like her to go to [facility]. The patient has a history of wandering behaviors. Family wants a secure facility. We will attempt to confirm placement. ASSESSMENT: The patient likely approaching her baseline. JOB# [id number]
--- NOTE | 2019-11-04 23:35 | Progress Notes ---
DATE: 11/04/2019 SUBJECTIVE: The patient was seen in her room. The patient is asleep, but easily arousable. According to nurses, the patient still has some episodes of agitation, easily gets frustrated, has poor impulse control. Otherwise, the patient is in no acute distress. OBJECTIVE: VITAL SIGNS: Temperature 97.2, heart rate 60, respirations 20, blood pressure ____, 100% on room air. HEENT: Head is atraumatic and normocephalic. Eyes, bilateral conjunctivae are clear. Bilateral pupils are equally round and reactive. NECK: Supple. No JVD. CARDIOVASCULAR: S1 and S2, without murmur. PULMONARY: Clear to auscultation. GASTROINTESTINAL: Soft and nontender without guarding. Positive bowel sounds. MUSCULOSKELETAL: No clubbing. No cyanosis noted. ASSESSMENT: 1. Acute psychosis. 2. Dementia. 3. Bipolar by history. 4. Diabetes. 5. Hypertension. PLAN: We will keep the patient inpatient to Psychiatric Unit. We will follow up with a psychiatrist to monitor the patient's condition and behavior. Treatment plans were discussed with the patient's nurse. Treatment plans were discussed with Dr. Whitfield. JOB# [id number]
[2019-11-05] MEDS: Multivitamin Tab PO SCH (08:55)
--- NOTE | 2019-11-05 12:49 | Internal Medicine Prog Note ---
Internal Medicine Subjective - Subjective Patient is:: awake, verbal, denies any new complaints, agitated, confused Patient Complaints of:: other (delusional) Per staff patient has:: no adverse event, no episodes of fall, tolerating meds Internal Medicine Objective - Physical Exam Vitals and I&O: Vital Signs Temp 97.1 F 11/05/19 06:33 Pulse 67 11/05/19 08:54 Resp 19 11/05/19 06:33 BP 137/74 11/05/19 08:54 Pulse Ox 97 11/05/19 06:33 Intake & Output 11/04/19 11/05/19 11/05/19 18:59 06:59 18:59 Intake Total 1200 440 Balance 1200 440 Intake: Oral 1200 440 Other: # Voids 4 2 # Bowel Movements 1 Stool Characteristics Soft Soft Active Medications: Current Medications Acetaminophen (Tylenol) 650 mg PO Q4HR PRN PRN Reason: Mild Pain (Scale 1-3) Stop: 12/24/19 03:00 Acetaminophen (Tylenol) 650 mg PO Q4H PRN PRN Reason: TEMP ABOVE 100 Stop: 12/24/19 10:19 Al Hydrox/Mg Hydrox/Simethicone (Maalox) 30 ml PO Q4HR PRN PRN Reason: GI DISTRESS Stop: 12/24/19 03:00 Atenolol (Tenormin) 25 mg PO BID [facility] Stop: 12/26/19 16:59 Last Admin: 11/05/19 08:54 Dose: 25 mg Donepezil HCl (Aricept) 5 mg PO HS [facility] Stop: 12/30/19 20:59 Last Admin: 11/04/19 20:50 Dose: 5 mg Lorazepam (Ativan) 0.5 mg PO Q4HR PRN; Protocol PRN Reason: Anxiety Stop: 11/24/19 03:00 Last Admin: 11/05/19 03:14 Dose: 0.5 mg Magnesium Hydroxide (Milk Of Magnesia) 30 ml PO HS PRN PRN Reason: Constipation Memantine (Namenda) 5 mg PO BID [facility] Stop: 12/31/19 08:59 Last Admin: 11/05/19 08:55 Dose: 5 mg Metformin HCl (Glucophage) 1,000 mg PO DAILY [facility] Stop: 12/27/19 08:59 Last Admin: 11/05/19 09:03 Dose: Not Given Multivitamins/Vitamin C (Theragran) 1 tab PO DAILY TR Stop: 12/24/19 08:59 Last Admin: 11/05/19 08:55 Dose: 1 tab Zolpidem Tartrate (Ambien) 5 mg PO HS PRN PRN Reason: Insomnia Stop: 12/24/19 03:00 Last Admin: 11/04/19 20:50 Dose: 5 mg General: alert, NAD HEENT: NC/AT, PERRLA Neck: Supple, No JVD Lungs: other (no acute respiratory distress) Cardiovascular: RRR Abdomen: soft, non-tender, non-distended Extremities: clear Neurological: alert Internal Medicine Assmt/Plan - Assessment Assessment: Acute psychosis Dementia Hx of bipolar DM HTN - Plan Plan: Continue current treatment plan. Monitor Labs. Continue current medications Continue to monitor VS Monitor Diet/Nutritional support. Psych management per Psychiatry. Pain Management. PT/OT prnSafety precaution, Fall precaution, frequent nursing round. Supportive care. Continue collaborating with consulting specialists, case management and nursing team Accu-check Nutritional Asmnt/Malnutr-PDOC - Dietary Evaluation Malnutrition Findings (Please click <Entered> for more info): Nutritional Asmnt/Malnutrition Start: 10/30/19 12: 12 Text: Status: Complete Freq: Protocol: Document 10/30/19 12:18 SHAD (Rec: 10/30/19 12:20 SHAD [email or web address]) Nutritional Asmnt/Malnutrition Patient General Information Nutritional Screening Moderate Risk Diagnosis Psychosis Pertinent Medical Hx/Surgical Hx No pertinent Hx per H & P report. Subjective Information Pt is a 64-year-old female admitted on 10/25 d/t increased confusion, hallucinations, and aggressive behavior. Pt is eating an estimated 75% of meals x 3 days Per Meal/ Nutrition Activity Record. Dietary is currently providing an estimated 1800 kcals and 70 gm Pro, per Pt PO intake this is providing an estimated 1350 kcals and 53 gm Pro to meet 80% kcal and 80% Pro needs- adequate. Anthropometrics HT: 54 WT: 147 LB (66.82 kg) BMI: 25.23 (Normal) GI/ Skin Integrity GI: Soft, Non-tender BM: /8 x1 I/O: 1480/3 (+1477) Skin: WNL, Intact Ravi: 21 Diet Order: [facility] 45gm, YEYO Estimated Energy Needs: ( Geriatric, CBW) 4949-4520 kcals (25-30 kcals/ kg) 66-80g Pro (1.0-1.2 g/kg) 4007-7155 ml (25-30 ml/kg) Current Diet Order/ Nutrition Support [facility] 45, YEYO Pertinent Medications Maalox (PRN), MOM (PRN), Glucophage, Theragran Pertinent Labs 10/24: Glucose 108, Ca 8.0, Alk Phos 39, Alb 3.1, Hgb/Hct 10. 8/32.9, GFR 98 Nutritional Hx/Data Height 5 ft 4 in Height (Calculated Centimeters) 162.6 Current Weight (lbs) 147 lb Weight (Calculated Kilograms) 66.7 Weight (Calculated Grams) 04359.1 [place] Body Weight 120 LB (54.55 kg) % [place] Body Weight 82 Body Mass Index (BMI) 25.2 Weight Status Approriate GI Symptoms Last BM 10/29 x1 Skin Integrity/Comment: Skin: WNL, Intact Ravi: 21 Estimated Nutritional Goals BEE in Kcals: Using Current wt Calories/Kcals/Kg 25-30 Kcals Calculated 2309-7688 Protein: Using Current wt Protein g/k.0-1.2 Protein Calculated 66-80 Fluid: ml 4944-0984 ml (25-30 ml/kg) Nutritional Problem No current Nutrition Prob Problem No nutrition diagnosis at this time. Etiology N/A Signs/Symptoms: N/A Malnutrition Related to Morbid Obesity Malnutrition related to morbid obesity No Intervention/Recommendation Comments 1. Continue [address], [facility] diet as tolerated. 2. Continue antihyperglycemic medications for glucose control per MD order. Expected Outcomes/Goals Expected Outcomes/Goals 1. PO intake to continue to meet> 75% of estimated nutritional needs. 2. Monitor PO intake, wt, nutrition related labs, and skin integrity. 3. F/U as low risk in 7-10 days, 11/06-11/09
--- NOTE | 2019-11-06 08:04 | Progress Notes ---
DATE: 11/03/2019 SUBJECTIVE: Chart reviewed and the patient interviewed. Also discussed the patient's condition with the staff and reviewed records and labs. The patient is still forgetful and is still pacing up and down the unit. The patient also still needs lots of redirections. The patient also is still having episodes of irritability and anger, but seems to be slightly less than before. Also, still taking Macrobid for the urinary tract infection. ASSESSMENT: The patient is still confused and agitation, but seems to be less agitated. TREATMENT PLAN: Continue monitoring behavior and condition closely. Also, continue adjusting psychotropic medications and work on the behavioral modification as well as her urinary tract infection. JOB# [id number]
--- NOTE | 2019-11-06 08:04 | Progress Notes ---
DATE: 11/02/2019 PSYCHIATRIC PROGRESS NOTE Chart reviewed and the patient interviewed. Also discussed the patient's condition with the staff and reviewed records and labs. The patient is still forgetful and still needs redirections, but seems to be calmer and seems to be less agitated. The patient also is pacing about the hallway and staff has to redirect him. At the same time, the patient is compliant with taking his medications, with no side effects of medications. The patient also has a UTI and will continue to take Macrobid 100 mg twice a day, with no side effects. ASSESSMENT: The patient is still agitated and still needs lots of redirections. TREATMENT PLAN: Continue monitoring behavior and condition. Also, continue working on her confusion and her agitation. Also, working on clearing the UTI infection and continue to follow up closely. JOB# [id number]
--- NOTE | 2019-11-06 08:04 | Progress Notes ---
DATE: 11/05/2019 SUBJECTIVE: The patient in the hospital, confused, but calm, no longer trying to escape the unit as well as no agitation, likely approaching her baseline, friendly, calm, cooperative. Medications were noted. Staff noting improvement. No agitation. Following unit rules and directions. No side effects. Taking her medications. PLAN: We will monitor for further 24 hours. JOB# [id number]
[2019-11-06] MEDS: Multivitamin Tab PO SCH (08:24)
--- NOTE | 2019-11-06 10:53 | Internal Medicine Prog Note ---
Internal Medicine Subjective - Subjective Service Date: 11/06/19 Patient seen and examined:: with staff, chart reviewed Patient is:: awake, verbal, denies any new complaints, agitated, confused Patient Complaints of:: other (delusional) Per staff patient has:: no adverse event, no episodes of fall, tolerating meds Internal Medicine Objective - Results Recent Labs: Laboratory Last Values POC Glucose 108 MG/DL (70 - 105) H 11/05/19 16:19 - Physical Exam Vitals and I&O: Vital Signs Temp 97.1 F 11/06/19 06:31 Pulse 78 11/06/19 08:29 Resp 19 11/06/19 06:31 BP 140/73 11/06/19 08:29 Pulse Ox 98 11/06/19 06:31 Intake & Output 11/05/19 11/06/19 11/06/19 18:59 06:59 18:59 Intake Total 1200 300 Balance 1200 300 Intake: Oral 1200 300 Other: # Voids 4 3 # Bowel Movements 1 Stool Characteristics Soft Soft Active Medications: Current Medications Acetaminophen (Tylenol) 650 mg PO Q4HR PRN PRN Reason: Mild Pain (Scale 1-3) Stop: 12/24/19 03:00 Acetaminophen (Tylenol) 650 mg PO Q4H PRN PRN Reason: TEMP ABOVE 100 Stop: 12/24/19 10:19 Al Hydrox/Mg Hydrox/Simethicone (Maalox) 30 ml PO Q4HR PRN PRN Reason: GI DISTRESS Stop: 12/24/19 03:00 Atenolol (Tenormin) 25 mg PO BID [facility] Stop: 12/26/19 16:59 Last Admin: 11/06/19 08:29 Dose: 25 mg Donepezil HCl (Aricept) 5 mg PO HS TR Stop: 12/30/19 20:59 Last Admin: 11/05/19 20:47 Dose: 5 mg Lorazepam (Ativan) 0.5 mg PO Q4HR PRN; Protocol PRN Reason: Anxiety Stop: 11/24/19 03:00 Last Admin: 11/05/19 03:14 Dose: 0.5 mg Magnesium Hydroxide (Milk Of Magnesia) 30 ml PO HS PRN PRN Reason: Constipation Memantine (Namenda) 5 mg PO BID [facility] Stop: 12/31/19 08:59 Last Admin: 11/06/19 08:29 Dose: 5 mg Metformin HCl (Glucophage) 1,000 mg PO DAILY TR Stop: 12/27/19 08:59 Last Admin: 11/06/19 08:24 Dose: 1,000 mg Multivitamins/Vitamin C (Theragran) 1 tab PO DAILY TR Stop: 12/24/19 08:59 Last Admin: 11/06/19 08:24 Dose: 1 tab Zolpidem Tartrate (Ambien) 5 mg PO HS PRN PRN Reason: Insomnia Stop: 12/24/19 03:00 Last Admin: 11/05/19 20:47 Dose: 5 mg Physical Exam: Patient still needs close monitoring, Agitated and very confused, Delusional. General: alert, NAD HEENT: NC/AT, PERRLA Neck: Supple, No JVD Lungs: other (no acute respiratory distress) Cardiovascular: RRR Abdomen: soft, non-tender, non-distended Extremities: clear Neurological: alert Internal Medicine Assmt/Plan - Assessment Assessment: Acute Psychosis. - Plan Plan: Psych management as per Psych. Continue present meds as directed. Monitor vitals and labs. Supportive care. Monitor diet and nutritional support. Continue current treatment plan as ordered. Nutritional Asmnt/Malnutr-PDOC - Dietary Evaluation Malnutrition Findings (Please click <Entered> for more info): Nutritional Asmnt/Malnutrition Start: 10/30/19 12: 12 Text: Status: Complete Freq: Protocol: Document 10/30/19 12:18 SHAD (Rec: 10/30/19 12:20 SHAD [id number]) Nutritional Asmnt/Malnutrition Patient General Information Nutritional Screening Moderate Risk Diagnosis Psychosis Pertinent Medical Hx/Surgical Hx No pertinent Hx per H & P report. Subjective Information Pt is a 64-year-old female admitted on 10/25 d/t increased confusion, hallucinations, and aggressive behavior. Pt is eating an estimated 75% of meals x 3 days Per Meal/ Nutrition Activity Record. Dietary is currently providing an estimated 1800 kcals and 70 gm Pro, per Pt PO intake this is providing an estimated 1350 kcals and 53 gm Pro to meet 80% kcal and 80% Pro needs- adequate. Anthropometrics HT: 54 WT: 147 LB (66.82 kg) BMI: 25.23 (Normal) GI/ Skin Integrity GI: Soft, Non-tender BM: 10/29 x1 I/O: 1480/3 (+1477) Skin: WNL, Intact Ravi: 21 [facility], YEY[facility] Estimated Energy Needs: ( Geriatric, CBW) 2080-8895 kcals (25-30 kcals/ kg) 66-80g Pro (1.0-1.2 g/kg) 2573-1850 ml (25-30 ml/kg) Current Diet Order/ Nutrition Support [facility] 45gm, YEYO Pertinent Medications Maalox (PRN), MOM (PRN), Glucophage, Theragran Pertinent Labs 10/24: Glucose 108, Ca 8.0, Alk Phos 39, Alb 3.1, Hgb/Hct 10. 8/32.9, GFR 98 Nutritional Hx/Data Height 1.63 m Height (Calculated Centimeters) 162.6 Current Weight (lbs) 66.678 kg Weight (Calculated Kilograms) 66.7 Weight (Calculated Grams) 89405.1 [place] Body Weight 120 LB (54.55 kg) % [place] Body Weight 82 Body Mass Index (BMI) 25.2 Weight Status Approriate GI Symptoms Last BM 10/29 x1 Skin Integrity/Comment: Skin: WNL, Intact Ravi: 21 Estimated Nutritional Goals BEE in Kcals: Using Current wt Calories/Kcals/Kg 25-30 Kcals Calculated 8866-9443 Protein: Using Current wt Protein g/k.0-1.2 Protein Calculated 66-80 Fluid: ml 4285-0238 ml (25-30 ml/kg) Nutritional Problem No current Nutrition Prob Problem No nutrition diagnosis at this time. Etiology N/A Signs/Symptoms: N/A Malnutrition Related to Morbid Obesity Malnutrition related to morbid obesity No Intervention/Recommendation Comments 1. [facility], YEYO diet as tolerated. 2. Continue antihyperglycemic medications for glucose control per MD order. Expected Outcomes/Goals Expected Outcomes/Goals 1. PO intake to continue to meet> 75% of estimated nutritional needs. 2. Monitor PO intake, wt, nutrition related labs, and skin integrity. 3. F/U as low risk in 7-10 days, 11/06-11/09
--- NOTE | 2019-11-06 17:25 | Discharge Summary ---
DATE OF DISCHARGE: 11/06/2019 HISTORY OF PRESENT ILLNESS: A 64-year-old female, currently in the hospital, coming from [facility], confused, aggressive, hallucinating, wandering behavior, is trying to leave the hospital, trying to escape, trying to AWOL, confused on exam. PAST PSYCHIATRIC HISTORY: Dementia. SOCIAL HISTORY: Family support, but they cannot have her at home. She needs fdc locked. PROVISIONAL DIAGNOSES: Dementia, dementia with behaviors, bipolar per history. HOSPITAL COURSE: After initial assessment, the patient was brought into the hospital. Medications were adjusted, titrated mostly to target dementia. No overt signs and symptoms of bipolar. Over the course of treatment, the patient is calm, more cooperative, no longer trying to escape. Family agreeable to placement locked, better sleep, better appetite, more engaged, but confused. Staff noting no agitation. CONDITION UPON DISCHARGE: Improved. No SI, no HI, no intent, no plan. Remains confused. No overt agitation, still believing that she is going to go home, still trying to go home. DISCHARGE DIAGNOSES: Dementia, dementia with behaviors. MEDICAL: Please see full H and P. PROGNOSIS: The patient follows up with outpatient mental health services and remains compliant with treatment. Prognosis will improve, otherwise guarded. [facility]# [id number]
== END 2019-11-06 15:30 | DRG 885 ==
LOC: GERO 10-25 01:40
PROVIDERS: ADMIT Psychiatry & Neurology Psychiatry; ATTEND Psychiatry & Neurology Psychiatry
DX: F23 Brief psychotic disorder (principal); F03.90 Unspecified dementia, unspecified severity, without behavioral disturbance, psychotic disturbance, mood disturbance, and anxiety; I10 Essential (primary) hypertension; E11.9 Type 2 diabetes mellitus without complications; F31.9 Bipolar disorder, unspecified; Z88.0 Allergy status to penicillin; Z79.84 Long term (current) use of oral hypoglycemic drugs; Z79.899 Other long term (current) drug therapy
CPT/HCPCS: 82948-90; 83036-90; 90899; G0410